=== PATIENT | male | born 1995 | race African-American/Black ===

== ENCOUNTER 2021-02-21 02:03 | Emergency (ER) | payer OTHER ==
[~2021-02-21] VITALS: Ht 177.8 cm; Wt 63.5 kg
[2021-02-21] MEDS ORDERED: ONDANSETRON HCL/PF 4 MG/2 ML VIAL ONE (02:23)
[2021-02-21] MEDS ORDERED: MORPHINE SULFATE INJ 4 MG/ML DISP.SYRIN ONE (02:24)
--- NOTE | 2021-02-21 02:25 | NUR ---
PATIENT JAYMIESENANCY C/O RLQ PAIN SINCE 5PM, TOOK TYLENOL 1G @5PM & 500MG @0000. PT STATED "IT FEELS LIKE I HAVE A KIDNEY STONE". PATIENT A/O X 4, RR EVEN, NO SOB NOTED, PATIENT CONNECTED TO MONITOR, VVS, WILL CONTINUE TO MONITOR.
[2021-02-21] MEDS: MORPHINE SULFATE INJ 2 MG/ML DISP.SYRIN IV ONE (02:40)
[2021-02-21] MEDS: IV NS 0.9% 1,000 ML BAG IV ONE (02:40)
[2021-02-21] MEDS: ONDANSETRON HCL/PF 4 MG/2 ML VIAL IVP ONE (02:40)
[2021-02-21 02:44] LABS: BASOPHILS # (AUTO) 0.1 K/uL (0.0-0.2); BASOPHILS % (AUTO) 0.8 % (0.0-2.0); EOSINOPHILS % (AUTO) 0.7 % (0.0-6.0); HEMATOCRIT 45 % (39-51); HEMOGLOBIN 14.4 g/dL (13.5-17.5); LYMPHOCYTES # (AUTO) 2.3 K/uL (0.8-4.8); LYMPHOCYTES % (AUTO) 30.6 % (20.0-44.0); MEAN CORPUSCULAR HGB CONC 32 g/dl (31.0-36.0); MEAN CORPUSCULAR VOLUME 86 fL (80-96); MONOCYTES # (AUTO) 0.9 K/uL (0.1-1.30); MONOCYTES % (AUTO) 12.2 % (2.0-12.0); NEUTROPHILS # (AUTO) 4.1 K/uL (1.8-8.9); NEUTROPHILS % (AUTO) 55.7 % (43.0-81.0); PLATELET COUNT (AUTO) 242 K/uL (150-450); RED BLOOD CELL COUNT(AUTO) 5.21 MIL/uL (4.5-6.0); WHITE BLOOD COUNT (AUTO) 7.4 K/uL (4.3-11.0)
[2021-02-21 02:56] LABS: ALBUMIN 4.4 g/dL (3.4-5.0); BILIRUBIN,DIRECT 0.2 mg/dL (0.0-0.2); BILIRUBIN,TOTAL 0.9 mg/dL (0.2-1.0); CREATININE 1.2 mg/dL (0.6-1.3)
--- NOTE | 2021-02-21 03:03 | NUR ---
PATIENT TAKEN TO CT
--- NOTE | 2021-02-21 03:20 | NUR ---
URINE COLLECTED AND SENT TO LAB
[2021-02-21 03:24] LABS: BILIRUBIN,URINE Negative (NEGATIVE); COLOR,URINE YELLOW (YELLOW); LEUKOCYTE ESTERASE ,URINE Small (NEGATIVE); NITRITE, URINE Negative (NEGATIVE); PROTEIN,URINE Trace mg/dl (NEGATIVE); UGLUCOSE Negative (NEGATIVE); UROBILINOGEN,URINE 0.2 EU/dL (0.2)
[2021-02-21 03:37] LABS: RBC,URINE 81-100 /HPF (0-2)
[2021-02-21 03:38] LABS: BACTERIA,URINE Few /HPF (None Seen); MUCUS,URINE Few /LPF (None Seen); SQUAMOUS EPITHELIAL CELL,UR Few /HPF (None Seen)
[2021-02-21] MEDS ORDERED: TAMS-12 PO (03:45)
[2021-02-21] MEDS ORDERED: CIPR500T5 PO (03:45)
[2021-02-21] MEDS ORDERED: HYDR-4303 PO (03:45)
[2021-02-21] MEDS ORDERED: IBUP-1957 PO (03:45)
[2021-02-21 03:57] VITALS: BP 125/78
--- NOTE | 2021-02-21 03:58 | NUR ---
Patient discharged to home in stable condition. RX and Written and verbal after care instructions given. Patient verbalizes understanding of instruction.
[2021-02-21] MEDS ORDERED: POTASSIUM CHLORIDE 20 MEQ TAB.PRT.SR PO ONE (04:00)
[2021-02-21] MEDS ORDERED: CIPROFLOXACIN HCL 250 MG TABLET PO ONE (04:00)
== END 2021-02-21 03:58 | disposition home or self-care (01) ==
LOC: ER 02:10
DX: N20.0 Calculus of kidney (principal); N39.0 Urinary tract infection, site not specified; E87.6 Hypokalemia
CPT/HCPCS: 36415; 74176; 80048; 80076; 81001; 83690; 85025; 85730; 87086; 96361; 96374; 96375; 99284; J2270; J2405; J7030